=== PATIENT | male | born 1965 | race Caucasian/White ===

== ENCOUNTER 2021-10-02 16:32 | Emergency (ER) | payer SELFPAY ==
[~2021-10-02] VITALS: Ht 180.3 cm; Wt 109.1 kg
[2021-10-02 17:58] LABS: HEMATOCRIT 23.1 % (39.0-50.0); MEAN CORPUSCULAR HGB 26.3 pG CALC (26.0-32.0); MEAN CORPUSCULAR HGB CONC 34.2 g/dL CAL (32.0-36.0); RED CELL DISTRI WIDTH 14.5 % (11.5-15.5)
[2021-10-02 18:07] LABS: ALBUMIN 3.9 g/dL (3.2-5.0); BILIRUBIN, TOTAL 0.6 mg/dL (0.0-1.4); IMMATURE GRANULOCYTES 9.8 % (0.0-5.0)
[2021-10-02 18:31] LABS: POTASSIUM 6.1 mmol/l (3.5-5.1)
[2021-10-02 20:45] LABS: URINE BILIRUBIN - DIPSTICK NEGATIVE (NEGATIVE); URINE BLOOD DIPSTICK LARGE (NEGATIVE); URINE COLOR YELLOW; URINE GLUCOSE - DIPSTICK NEGATIVE (NEGATIVE); URINE KETONE NEGATIVE (NEGATIVE); URINE LEUK ESTERASE NEGATIVE (NEGATIVE); URINE PROTEIN - DIPSTICK 100 mg/dL (NEG-TRACE); URINE SPECIFIC GRAVITY >=1.030; URINE UROBILINOGEN - DIPSTICK 0.2 E.U./dL (0.2)
[2021-10-02 20:47] LABS: URINE NITRITE - DIPSTICK NEGATIVE (Negative)
[2021-10-02 21:20] VITALS: BP 160/72
== END 2021-10-02 21:20 | disposition short-term general hospital (02) | DRG 684 ==
LOC: ED 16:32
PROVIDERS: Family Medicine
DX: N17.9 Acute kidney failure, unspecified (principal); F20.9 Schizophrenia, unspecified; F17.200 Nicotine dependence, unspecified, uncomplicated

== ENCOUNTER 2022-01-12 15:26 | Emergency (ER) | payer OTHER ==
[~2022-01-12] VITALS: Ht 180.3 cm; Wt 125.0 kg
[2022-01-12 16:48] LABS: HEMATOCRIT 36.6 % (39.0-50.0); MEAN CELL VOLUME 91.7 fL CALC (80.0-100.0); MEAN CORPUSCULAR HGB 27.6 pG CALC (26.0-32.0); MEAN CORPUSCULAR HGB CONC 30.1 g/dL CAL (32.0-36.0); NEUT# 2.79 thou/uL (1.82-7.42); RED BLOOD COUNT 3.99 mill/uL (4.70-6.10); RED CELL DISTRI WIDTH 20.1 % (11.5-15.5)
[2022-01-12 17:00] LABS: ALBUMIN 3.3 g/dL (3.2-5.0); CREATININE 1.8 mg/dL (0.7-1.3); TOTAL PROTEIN 7.6 g/dL (6.3-8.2)
[2022-01-12 17:09] LABS: BILIRUBIN, TOTAL 1.4 mg/dL (0.0-1.4); POTASSIUM 4.9 mmol/l (3.5-5.1)
[2022-01-12 17:31] VITALS: BP 150/78
[2022-01-12 17:46] VITALS: BP 157/86
[2022-01-12] MEDS ORDERED: PROAIR HFA108 MCG/AC PO (18:18)
[2022-01-12 18:33] VITALS: BP 157/86
== END 2022-01-12 18:32 | disposition left against medical advice (07) ==
LOC: ED 15:26 → ED-I 17:32 → ED 18:32
PROVIDERS: Family Medicine
DX: I50.9 Heart failure, unspecified (principal); E66.9 Obesity, unspecified; F20.9 Schizophrenia, unspecified; F17.210 Nicotine dependence, cigarettes, uncomplicated; Z91.19 Patient's noncompliance with other medical treatment and regimen; Z20.822 Contact with and (suspected) exposure to COVID-19